=== PATIENT | male | born 1960 | race Caucasian/White ===

== ENCOUNTER 2024-11-04 18:26 | Outpatient (REF) | payer MEDICAID, SELFPAY | END 2024-11-04 18:27 | disposition home or self-care (01) | LOC: LBN 18:26 | PROVIDERS: Visit Provider Nurse Practitioner Family | DX: S91.002A Unspecified open wound, left ankle, initial encounter (principal) | CPT/HCPCS: 87077; 87070; 87186; 87205 ==